=== PATIENT | female | born 1990 | race African-American/Black ===

== ENCOUNTER 2017-02-26 20:13 | Emergency (ER) | payer MEDICAID ==
[~2017-02-26] VITALS: Ht 154.9 cm; Wt 72.6 kg
[2017-02-26 20:18] VITALS: BP 140/88
== END 2017-02-26 20:44 | disposition home or self-care (01) ==
LOC: ER 20:14
DX: F41.9 Anxiety disorder, unspecified (principal); J20.9 Acute bronchitis, unspecified; Z88.6 Allergy status to analgesic agent; Z88.5 Allergy status to narcotic agent
CPT/HCPCS: 99283; A4606; Z7610

== ENCOUNTER 2017-04-02 01:11 | Emergency (ER) | payer MEDICAID ==
[~2017-04-02] VITALS: Ht 154.9 cm; Wt 71.7 kg
[2017-04-02 01:16] VITALS: BP 130/87
--- NOTE | 2017-04-02 03:10 | NUR ---
PER ER ADMITTING, PT LEFT [facility] ED
== END 2017-04-02 03:11 | disposition left against medical advice (07) ==
LOC: ER 01:13
DX: Z53.21 Procedure and treatment not carried out due to patient leaving prior to being seen by health care provider (principal)
CPT/HCPCS: A4606; Z7610

== ENCOUNTER 2017-08-13 03:35 | Emergency (ER) | payer MEDICAID ==
[~2017-08-13] VITALS: Ht 154.9 cm; Wt 72.1 kg
[2017-08-13 03:50] VITALS: BP 131/75
== END 2017-08-13 04:20 | disposition home or self-care (01) ==
LOC: ER 03:38
DX: R05 Cough (principal); F41.9 Anxiety disorder, unspecified; K46.9 Unspecified abdominal hernia without obstruction or gangrene; Z88.5 Allergy status to narcotic agent; Z88.6 Allergy status to analgesic agent
CPT/HCPCS: 71010; 99283; A4606; Z7610

== ENCOUNTER 2017-10-07 15:23 | Emergency (ER) | payer MEDICAID ==
[~2017-10-07] VITALS: Ht 154.9 cm; Wt 68.0 kg
--- NOTE | 2017-10-07 15:40 | NUR ---
PT CAME IN WITH C/O LEFT FLANK PAIN AND BURNING SENSATION DURING SENSATION X 2 WEEKS, RECENTLY FINISHED ABD COURSE. NAD NOTED. VSS. SEEN BY MD FOR EVAL. SAFETY AND COMFORT MEASURES PROVIDED. WILL MONITOR.
--- NOTE | 2017-10-07 16:25 | NUR ---
FER ROMERO AT BS.
[2017-10-07 16:30] LABS: APPEARANCE,URINE Clear (CLEAR); BILIRUBIN,URINE SMALL (NEGATIVE); BLOOD, URINE Moderate Ery/uL (NEGATIVE); COLOR,URINE Yellow (YELLOW); KETONES,URINE Trace (NEGATIVE); LEUKOCYTE ESTERASE ,URINE Negative (NEGATIVE); NITRITE, URINE Negative (NEGATIVE); PH,URINE 6.5 (5.0-8.0); PROTEIN,URINE Trace mg/dl (NEGATIVE); UGLUCOSE Negative (NEGATIVE)
[2017-10-07 16:57] LABS: BACTERIA,URINE None seen /HPF (None Seen); SQUAMOUS EPITHELIAL CELL,UR Few /HPF (None Seen); WBC,URINE 0-2 /HPF (0-3)
--- NOTE | 2017-10-07 17:50 | NUR ---
Patient discharged to home in stable condition. Written and verbal after care instructions given. Patient verbalizes understanding of instruction.
[2017-10-07 18:09] VITALS: BP 125/81
== END 2017-10-07 18:10 | disposition home or self-care (01) ==
LOC: ER 15:27
DX: R31.9 Hematuria, unspecified (principal); F10.10 Alcohol abuse, uncomplicated; F41.9 Anxiety disorder, unspecified; Z88.6 Allergy status to analgesic agent; Z88.5 Allergy status to narcotic agent
CPT/HCPCS: 74176; 76856; 81001; 84703; 87086; 99285; A4606; Z7610; 81000-TC

== ENCOUNTER 2018-03-17 18:25 | Emergency (ER) | payer MEDICAID ==
[~2018-03-17] VITALS: Ht 154.9 cm; Wt 63.5 kg
--- NOTE | 2018-03-17 18:30 | NUR ---
, NAD NOTED, VSS, RESP EVEN AND UNLABORED, PT WAS PUT ON MONITOR, WAITING FOR MD BAKER. VAGINAL BLEEDING X 11 DAYS, 3 WEEKS , A1
[2018-03-17 18:57] LABS: BASOPHILS % (AUTO) 0.6 % (0.0-2.0); EOSINOPHILS % (AUTO) 0.6 % (0.0-6.0); HEMATOCRIT 38 % (33-45); HEMOGLOBIN 13.3 g/dL (11.5-14.8); LYMPHOCYTES # (AUTO) 1.6 /CMM (0.8-4.8); LYMPHOCYTES % (AUTO) 40.9 % (20.0-44.0); MEAN CORPUSCULAR HGB CONC 35 g/dl (31.0-36.0); MEAN CORPUSCULAR VOLUME 86 fL (82-100); MONOCYTES # (AUTO) 0.4 /CMM (0.1-1.30); MONOCYTES % (AUTO) 10.3 % (2.0-12.0); NEUTROPHILS % (AUTO) 47.6 % (43.0-81.0); PLATELET COUNT (AUTO) 321 /CMM (150-450); RDW COEFFICIENT OF VARIATION 12.5 (11.5-15.0); RED BLOOD CELL COUNT(AUTO) 4.45 MIL/uL (4.0-5.2)
[2018-03-17 19:10] LABS: CALCIUM, SERUM 8.9 mg/dL (8.5-10.1); POTASSIUM 4.1 mmol/L (3.5-5.1)
[2018-03-17 19:14] LABS: INR 0.89 (0.85-1.15)
[2018-03-17 20:03] VITALS: BP 133/87
--- NOTE | 2018-03-17 20:04 | NUR ---
Patient discharged to home in stable condition. Written and verbal after care instructions given. Patient verbalizes understanding of instruction.
== END 2018-03-17 20:07 | disposition home or self-care (01) ==
LOC: ER 18:27
DX: O03.9 Complete or unspecified spontaneous abortion without complication (principal); F41.9 Anxiety disorder, unspecified; F10.10 Alcohol abuse, uncomplicated; Z88.5 Allergy status to narcotic agent; Z88.6 Allergy status to analgesic agent
CPT/HCPCS: 36415; 76856-TC; 80048-TC; 84702-TC; 85025-TC; 85730-TC; A4606; Z7610

== ENCOUNTER 2018-07-11 12:36 | Emergency (ER) | payer MEDICAID ==
[~2018-07-11] VITALS: Ht 157.5 cm; Wt 68.0 kg
[2018-07-11 12:36] VITALS: BP 138/87
== END 2018-07-11 14:18 | disposition home or self-care (01) ==
LOC: ER 12:37
DX: J02.9 Acute pharyngitis, unspecified (principal); R06.02 Shortness of breath; F41.9 Anxiety disorder, unspecified; F10.10 Alcohol abuse, uncomplicated; Y90.9 Presence of alcohol in blood, level not specified; Z88.6 Allergy status to analgesic agent; Z88.5 Allergy status to narcotic agent
CPT/HCPCS: 99282; A4606; Z7610

== ENCOUNTER 2019-03-27 14:36 | Emergency (ER) | payer MEDICAID ==
[~2019-03-27] VITALS: Ht 157.5 cm; Wt 72.6 kg
[2019-03-27] MEDS ORDERED: IV NS 0.9% 1,000 ML BAG IV ONE (15:00)
[2019-03-27] MEDS ORDERED: KETOROLAC TROMETHAMINE INJ 30 MG/ML VIAL IV ONE (15:00)
--- NOTE | 2019-03-27 15:00 | NUR ---
BIB SELF FOR LT LOWER BACK PAIN & CHILLS. PT'S BEEN TAKING ABX FOR BACTERIAL VAGINOSIS PER PT. TO ER BED 7, HOOKED TO MONITOR, CHANGED TO GOWN, PROVIDED W WARM BLANKET, AWAITING MD BAKER.
--- NOTE | 2019-03-27 15:01 | NUR ---
DR JOHNSON AT BEDSIDE
[2019-03-27 15:07] LABS: BASOPHILS % (AUTO) 0.4 % (0.0-2.0); EOSINOPHILS % (AUTO) 0.3 % (0.0-6.0); HEMATOCRIT 39 % (33-45); HEMOGLOBIN 13.3 g/dL (11.5-14.8); LYMPHOCYTES # (AUTO) 0.2 /CMM (0.8-4.8); LYMPHOCYTES % (AUTO) 7.1 % (20.0-44.0); MEAN CORPUSCULAR HGB CONC 34 g/dl (31.0-36.0); MEAN CORPUSCULAR VOLUME 87 fL (82-100); MONOCYTES # (AUTO) 0.4 /CMM (0.1-1.30); MONOCYTES % (AUTO) 13.9 % (2.0-12.0); NEUTROPHILS # (AUTO) 2.4 /CMM (1.8-8.9); NEUTROPHILS % (AUTO) 78.3 % (43.0-81.0); PLATELET COUNT (AUTO) 223 /CMM (150-450); RED BLOOD CELL COUNT(AUTO) 4.46 MIL/uL (4.0-5.2); WHITE BLOOD COUNT (AUTO) 3.1 K/uL (4.3-11.0)
[2019-03-27 15:16] LABS: CALCIUM, SERUM 9.2 mg/dL (8.5-10.1); CREATININE 0.9 mg/dL (0.6-1.3); POTASSIUM 3.8 mmol/L (3.5-5.1)
[2019-03-27 15:22] LABS: ALBUMIN 3.7 g/dL (3.4-5.0); BILIRUBIN,DIRECT 0.2 mg/dL (0.0-0.2); BILIRUBIN,TOTAL 0.6 mg/dL (0.2-1.0); TOTAL PROTEIN, SERUM 7.6 g/dL (6.4-8.2)
--- NOTE | 2019-03-27 15:23 | NUR ---
URINE SPECIMEN COLLECTED SENT TO LAB.
[2019-03-27 15:36] LABS: APPEARANCE,URINE Clear (CLEAR); BILIRUBIN,URINE Negative (NEGATIVE); BLOOD, URINE Trace-lysed Ery/uL (NEGATIVE); COLOR,URINE Yellow (YELLOW); KETONES,URINE 15 (NEGATIVE); LEUKOCYTE ESTERASE ,URINE Trace (NEGATIVE); NITRITE, URINE Positive (NEGATIVE); PH,URINE 6.5 (5.0-8.0); PROTEIN,URINE Negative (NEGATIVE); UGLUCOSE Negative (NEGATIVE); UROBILINOGEN,URINE 0.2 EU/dL (0.2)
[2019-03-27] MEDS ORDERED: KETOROLAC TROMETHAMINE INJ 30 MG/ML VIAL ONE (15:39)
[2019-03-27] MEDS ORDERED: CEFTRIAXONE 1GM BAG (ER ONLY) 50 ML IV ONE (16:05)
[2019-03-27] MEDS ORDERED: CEFTRIAXONE 1 G in IV D5W 50 ML IV ONE (16:30)
--- NOTE | 2019-03-27 16:53 | NUR ---
IV removed. Catheter intact and site benign. Pressure and 4x4 applied to site. No bleeding noted.Patient discharged to home in stable condition. Written and verbal after care instructions given. Patient verbalizes understanding of instruction.
[2019-03-27 16:54] VITALS: BP 117/77
[2019-03-27 17:01] LABS: BACTERIA,URINE Many /HPF (None Seen); SQUAMOUS EPITHELIAL CELL,UR Few /HPF (None Seen)
== END 2019-03-27 16:55 | disposition home or self-care (01) ==
LOC: ER 14:36
DX: N30.00 Acute cystitis without hematuria (principal); R10.9 Unspecified abdominal pain; F41.9 Anxiety disorder, unspecified; F10.10 Alcohol abuse, uncomplicated; Y90.9 Presence of alcohol in blood, level not specified; Z88.6 Allergy status to analgesic agent; Z88.5 Allergy status to narcotic agent
CPT/HCPCS: 36415; 80048; 80076; 81001; 83690; 84703; 85025; 87086; 96365; 96375; 99283; J0696; J1885; J7030; J7060; 81000-TC

== ENCOUNTER 2020-10-25 14:02 | Emergency (ER) | payer MEDICAID ==
[~2020-10-25] VITALS: Ht 157.5 cm; Wt 63.5 kg
[2020-10-25 14:18] VITALS: BP 122/90
--- NOTE | 2020-10-26 22:44 | NUR ---
PT INFORMED COVID RESULTS.
== END 2020-10-25 15:19 | disposition home or self-care (01) ==
LOC: ER 14:02
DX: U07.1 COVID-19 (principal); F41.9 Anxiety disorder, unspecified; Z88.6 Allergy status to analgesic agent
CPT/HCPCS: 99283; C9803; U0003

== ENCOUNTER 2021-04-24 18:41 | Emergency (ER) | payer MEDICAID ==
[~2021-04-24] VITALS: Ht 157.5 cm; Wt 74.8 kg
[2021-04-24 18:55] VITALS: BP 127/78
[2021-04-24 19:06] LABS: BILIRUBIN,URINE Negative (NEGATIVE); COLOR,URINE YELLOW (YELLOW); LEUKOCYTE ESTERASE ,URINE Moderate (NEGATIVE); NITRITE, URINE Negative (NEGATIVE); PH,URINE 5.5 (5.0-8.0); PROTEIN,URINE 100 mg/dl (NEGATIVE); UGLUCOSE Negative (NEGATIVE); UROBILINOGEN,URINE 0.2 EU/dL (0.2)
[2021-04-24 19:24] LABS: BACTERIA,URINE 1+ /HPF (None Seen); SQUAMOUS EPITHELIAL CELL,UR Few /HPF (None Seen); WBC,URINE 21-50 /HPF (0-3)
[2021-04-24] MEDS ORDERED: FLUC150T PO (19:36)
[2021-04-24] MEDS ORDERED: CEPH500T PO (19:36)
[2021-04-24] MEDS ORDERED: CEPHALEXIN MONOHYDRATE 500 MG CAPSULE PO ONE (19:41)
[2021-04-24] MEDS: CEPHALEXIN MONOHYDRATE 500 MG CAPSULE PO ONE (19:43)
== END 2021-04-24 19:44 | disposition home or self-care (01) ==
LOC: ER 18:45
DX: N39.0 Urinary tract infection, site not specified (principal); F41.9 Anxiety disorder, unspecified; Z88.6 Allergy status to analgesic agent; Z88.8 Allergy status to other drugs, medicaments and biological substances
CPT/HCPCS: 81001; 84703-TC; 87086-TC; 87186-TC

== ENCOUNTER 2021-10-21 12:10 | Emergency (ER) | payer MEDICAID ==
[~2021-10-21] VITALS: Ht 157.5 cm; Wt 86.6 kg
[~2021-10-21 12:10] MED LIST: CEPH500T PO; FLUC150T PO
[2021-10-21 12:29] VITALS: BP 126/84
--- NOTE | 2021-10-21 14:23 | NUR ---
SEEN AND EXAMINED BY .
--- NOTE | 2021-10-21 14:46 | NUR ---
PACKING LINE OPERATOR AT BEDSIDE FOR ULTRASOUND.
--- NOTE | 2021-10-21 15:55 | NUR ---
Patient discharged to home in stable condition. Written and verbal after care instructions given. Patient verbalizes understanding of instruction.
[2021-10-21] MEDS ORDERED: KETOROLAC TROMETHAMINE INJ 30 MG/ML VIAL IM ONE (16:00)
[2021-10-21] MEDS ORDERED: DEXAMETHASONE SOLN 5 MG/5 ML UDC PO ONE (16:00)
== END 2021-10-21 15:56 | disposition home or self-care (01) ==
LOC: ER 12:13
DX: J02.8 Acute pharyngitis due to other specified organisms (principal); F41.9 Anxiety disorder, unspecified; Z88.6 Allergy status to analgesic agent
CPT/HCPCS: 36415; 76856-TC; 84702-TC

== ENCOUNTER 2022-01-25 18:49 | Emergency (ER) | payer MEDICAID ==
[~2022-01-25] VITALS: Ht 157.5 cm; Wt 86.2 kg
--- NOTE | 2022-01-25 19:30 | NUR ---
BIBS FOR C/O WORSENING SPOTTING AND CRAMP SINCE LAST MONTH WHEN SHE WAS TESTED + FOR . UNKNOWN LMP. [id number]
--- NOTE | 2022-01-25 20:07 | NUR ---
URINE COLLECTED AND SENT TO LAB
--- NOTE | 2022-01-25 20:13 | NUR ---
US AT BEDSIDE
[2022-01-25 20:28] LABS: BASOPHILS % (AUTO) 0.6 % (0.0-2.0); EOSINOPHILS % (AUTO) 0.6 % (0.0-6.0); HEMATOCRIT 38 % (33-45); HEMOGLOBIN 12.7 g/dL (11.5-14.8); LYMPHOCYTES # (AUTO) 2.2 K/uL (0.8-4.8); MEAN CORPUSCULAR HGB CONC 34 g/dl (31.0-36.0); MEAN CORPUSCULAR VOLUME 83 fL (82-100); MONOCYTES # (AUTO) 0.5 K/uL (0.1-1.30); NEUTROPHILS # (AUTO) 3.8 K/uL (1.8-8.9); NEUTROPHILS % (AUTO) 57.8 % (43.0-81.0); PLATELET COUNT (AUTO) 337 K/uL (150-450); RED BLOOD CELL COUNT(AUTO) 4.54 MIL/uL (4.0-5.2); WHITE BLOOD COUNT (AUTO) 6.7 K/uL (4.3-11.0)
[2022-01-25 21:04] LABS: CALCIUM, SERUM 8.9 mg/dL (8.5-10.1); CREATININE 0.8 mg/dL (0.6-1.3); POTASSIUM 3.8 mmol/L (3.5-5.1)
[2022-01-25 21:12] LABS: BILIRUBIN,URINE NEGATIVE (NEGATIVE); COLOR,URINE YELLOW (YELLOW); LEUKOCYTE ESTERASE ,URINE NEGATIVE (NEGATIVE); NITRITE, URINE NEGATIVE (NEGATIVE); PH,URINE 5.5 (5.0-8.0); PROTEIN,URINE NEGATIVE (NEGATIVE); UGLUCOSE NEGATIVE (NEGATIVE); UROBILINOGEN,URINE 0.2 EU/dL (0.2)
[2022-01-25 21:39] LABS: BACTERIA,URINE 1+ /HPF (None Seen); RBC,URINE 21-50 /HPF (0-2); WBC,URINE 0-2 /HPF (0-3)
[2022-01-25 21:40] LABS: YEAST,URINE Few /HPF (None Seen)
--- NOTE | 2022-01-25 22:23 | NUR ---
Patient discharged to home in stable condition. Written and verbal after care instructions given. Patient verbalizes understanding of instruction.
[2022-01-25 22:46] VITALS: BP 137/77
== END 2022-01-25 22:23 | disposition home or self-care (01) ==
LOC: ER 18:53
DX: O23.41 Unspecified infection of urinary tract in pregnancy, first trimester (principal); N39.0 Urinary tract infection, site not specified; O99.341 Other mental disorders complicating pregnancy, first trimester; F41.9 Anxiety disorder, unspecified; Z3A.01 Less than 8 weeks gestation of pregnancy; Z87.718 Personal history of other specified (corrected) congenital malformations of genitourinary system; Z79.1 Long term (current) use of non-steroidal anti-inflammatories (NSAID); Z79.891 Long term (current) use of opiate analgesic
CPT/HCPCS: 36415; 76805-TC; 80048-TC; 81001; 84702-TC; 84703-TC; 85025-TC; 86431-TC; 86850-TC

== ENCOUNTER 2022-03-28 09:14 | Emergency (ER) | payer MEDICAID ==
[~2022-03-28] VITALS: Ht 157.5 cm; Wt 88.5 kg
--- NOTE | 2022-03-28 09:29 | NUR ---
URINE SPECIMEN COLLECTED AND SENT TO LAB.
[2022-03-28] MEDS ORDERED: FAMOTIDINE/PF INJ 20 MG/2 ML VIAL IV ONE ×2 (10:30→10:51)
[2022-03-28] MEDS ORDERED: methylPREDNISolone SOD SUCC 125 MG/2ML VIAL IV ONE (10:30)
[2022-03-28] MEDS ORDERED: methylPREDNISolone SOD SUCC 125 MG/2ML VIAL ONE (10:51)
[2022-03-28 11:20] VITALS: BP 116/69
== END 2022-03-28 11:20 | disposition home or self-care (01) ==
LOC: ER 09:19
DX: L23.9 Allergic contact dermatitis, unspecified cause (principal); F41.9 Anxiety disorder, unspecified; Z87.39 Personal history of other diseases of the musculoskeletal system and connective tissue; Z88.8 Allergy status to other drugs, medicaments and biological substances; Z60.2 Problems related to living alone; Z79.899 Other long term (current) drug therapy
CPT/HCPCS: 96374; 96375; 99284; J2930; J3490

== ENCOUNTER 2022-07-27 13:04 | Emergency (ER) | payer MEDICAID ==
[~2022-07-27] VITALS: Ht 157.5 cm; Wt 81.6 kg
--- NOTE | 2022-07-27 13:04 | NUR ---
bibs c/o vaginal bleeding x today GPA-. vitals are within normal limit. awaiting gmd eval and orders
[2022-07-27 14:17] LABS: BASOPHILS % (AUTO) 0.3 % (0.0-2.0); EOSINOPHILS % (AUTO) 0.3 % (0.0-6.0); HEMATOCRIT 39 % (33-45); HEMOGLOBIN 12.7 g/dL (11.5-14.8); LYMPHOCYTES # (AUTO) 1.5 K/uL (0.8-4.8); LYMPHOCYTES % (AUTO) 32.4 % (20.0-44.0); MEAN CORPUSCULAR HGB CONC 33 g/dl (31.0-36.0); MEAN CORPUSCULAR VOLUME 85 fL (82-100); MONOCYTES # (AUTO) 0.4 K/uL (0.1-1.30); MONOCYTES % (AUTO) 8.2 % (2.0-12.0); NEUTROPHILS # (AUTO) 2.8 K/uL (1.8-8.9); NEUTROPHILS % (AUTO) 58.8 % (43.0-81.0); PLATELET COUNT (AUTO) 329 K/uL (150-450); RED BLOOD CELL COUNT(AUTO) 4.57 MIL/uL (4.0-5.2); WHITE BLOOD COUNT (AUTO) 4.7 K/uL (4.3-11.0)
[2022-07-27 14:33] LABS: BILIRUBIN,URINE NEGATIVE (NEGATIVE); COLOR,URINE YELLOW (YELLOW); LEUKOCYTE ESTERASE ,URINE NEGATIVE (NEGATIVE); NITRITE, URINE NEGATIVE (NEGATIVE); PROTEIN,URINE NEGATIVE (NEGATIVE); UGLUCOSE NEGATIVE (NEGATIVE); UROBILINOGEN,URINE 0.2 EU/dL (0.2)
[2022-07-27 15:04] LABS: ALBUMIN 3.8 g/dL (3.4-5.0); BILIRUBIN,TOTAL 0.8 mg/dL (0.2-1.0); CALCIUM, SERUM 9.3 mg/dL (8.5-10.1); CREATININE 0.7 mg/dL (0.6-1.3); TOTAL PROTEIN, SERUM 7.5 g/dL (6.4-8.2)
[2022-07-27 15:10] LABS: BACTERIA,URINE 4+ /HPF (None Seen); RBC,URINE 81-100 /HPF (0-2)
[2022-07-27] MEDS ORDERED: METR250T36 PO (17:08)
--- NOTE | 2022-07-27 17:22 | NUR ---
Patient discharged to home in stable condition. Written and verbal after care instructions given. Patient verbalizes understanding of instruction.
[2022-07-27 17:24] VITALS: BP 149/82
== END 2022-07-27 17:24 | disposition home or self-care (01) ==
LOC: ER 13:11
DX: O20.0 Threatened abortion (principal); F41.9 Anxiety disorder, unspecified; Z88.6 Allergy status to analgesic agent; Z60.2 Problems related to living alone; Z79.899 Other long term (current) drug therapy; Z3A.00 Weeks of gestation of pregnancy not specified
CPT/HCPCS: 36415; 76856-TC; 80053-TC; 81001; 84702-TC; 84703-TC; 85025-TC; 86850-TC; 87086-TC; 87186-TC

== ENCOUNTER 2022-07-30 16:14 | Emergency (ER) | payer MEDICAID ==
[~2022-07-30] VITALS: Ht 157.5 cm; Wt 89.4 kg
[~2022-07-30 16:14] MED LIST changes: +METR250T36 PO
[2022-07-30 16:37] VITALS: BP 118/70
--- NOTE | 2022-07-30 18:00 | NUR ---
RECEVED PT 31 YRS FEMALE FROM HOME C/O V. BLEEDING HERE for blood drow 4 para 1 mascage 2 last menstraction period 06/25/22 no acive v. bleeding at this time
[2022-07-30] MEDS ORDERED: CEPH500C2 PO (19:25)
--- NOTE | 2022-07-30 19:25 | NUR ---
HAND OFF TO AMNA NG
--- NOTE | 2022-07-30 19:32 | NUR ---
Patient discharged to home in stable condition. Written and verbal after care instructions given. Patient verbalizes understanding of instruction.
== END 2022-07-30 19:33 | disposition home or self-care (01) ==
LOC: ER 16:24
DX: O20.0 Threatened abortion (principal); O23.41 Unspecified infection of urinary tract in pregnancy, first trimester; O34.81 Maternal care for other abnormalities of pelvic organs, first trimester; N83.202 Unspecified ovarian cyst, left side; N39.0 Urinary tract infection, site not specified; B96.20 Unspecified Escherichia coli [E. coli] as the cause of diseases classified elsewhere; Z3A.01 Less than 8 weeks gestation of pregnancy; F41.9 Anxiety disorder, unspecified; Z88.8 Allergy status to other drugs, medicaments and biological substances; Z60.2 Problems related to living alone; Z79.899 Other long term (current) drug therapy
CPT/HCPCS: 36415; 76856-TC; 84702-TC

== ENCOUNTER 2022-09-29 00:48 | Emergency (ER) | payer MEDICAID ==
[~2022-09-29] VITALS: Ht 157.5 cm; Wt 90.7 kg
[~2022-09-29 00:48] MED LIST changes: +CEPH500C2 PO
[2022-09-29 01:03] VITALS: BP 144/80
[2022-09-29] MEDS ORDERED: KETOROLAC EYE 0.5% 3 ML BOTTLE EACHEYE ONE (01:30)
[2022-09-29] MEDS ORDERED: KETO5DRO83 EACHEYE (01:52)
[2022-09-29] MEDS ORDERED: TETRAcaine 5 ML BOTTLE EACHEYE ONE (02:00)
== END 2022-09-29 02:09 | disposition home or self-care (01) ==
LOC: ER 00:49
DX: B30.9 Viral conjunctivitis, unspecified (principal); F41.9 Anxiety disorder, unspecified; Z88.8 Allergy status to other drugs, medicaments and biological substances; Z60.2 Problems related to living alone; Z79.899 Other long term (current) drug therapy

== ENCOUNTER 2023-11-10 13:54 | Emergency (ER) | payer MEDICAID ==
[~2023-11-10] VITALS: Ht 157.5 cm; Wt 90.7 kg
[~2023-11-10 13:54] MED LIST changes: +KETO5DRO83 EACHEYE
[2023-11-10] MEDS ORDERED: IBUP-1955 PO (14:48)
[2023-11-10] MEDS: LIDOCAINE 1% INJ 50 ML MDV IJ ONE (15:38)
[2023-11-10 16:59] VITALS: BP 131/81; TEMP 97.9; O2SAT 99
== END 2023-11-10 17:22 | disposition home or self-care (01) ==
LOC: ER 14:06
DX: L02.412 Cutaneous abscess of left axilla (principal); J06.9 Acute upper respiratory infection, unspecified; R05.9 Cough, unspecified; R09.81 Nasal congestion; F41.9 Anxiety disorder, unspecified; Z88.8 Allergy status to other drugs, medicaments and biological substances; Z60.2 Problems related to living alone; Z20.822 Contact with and (suspected) exposure to COVID-19
CPT/HCPCS: 99283; 10060; 87426; 87804 ×2; 87420; A6403; A6407; A4217; C9803